=== PATIENT | male | born 1990 | race Caucasian/White ===

== ENCOUNTER 2023-12-09 10:38 | Outpatient (CLI) | payer OTHER, SELFPAY ==
[2023-12-12 20:09] LABS: Immunoglobulin A 244 mg/dL (47-310); TTG IGA AB <1.0 U/mL
== END 2023-12-09 10:39 | disposition home or self-care (01) ==
LOC: ANHLAB 10:41
PROVIDERS: PCP Registered Nurse; Visit Provider Nurse Practitioner Family
DX: K58.0 Irritable bowel syndrome with diarrhea (principal)
CPT/HCPCS: 36415; 82784; 86364

== ENCOUNTER 2024-03-09 12:49 | Emergency (ER) | payer OTHER, SELFPAY ==
[2024-03-09 12:51] VITALS: BP 139/86; PULSE 92; RESP 16; TEMP 36.7; O2SAT 99
--- NOTE | 2024-03-09 13:16 | ED.GENADULT ---
HPI - General Adult General Chief complaint: Extremity Injury, Lower Stated complaint: R ankle injury Time Seen by Provider: 03/09/24 12:59 History of Present Illness HPI narrative: 33-year-old male present to the emergency department for evaluation for a right ankle injury. 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 Patient states he did feel a pop was initially able to walk on it. Patient rested states he started to feel better but as time passed he began to feel increased pain in that ankle. Patient denies any other pain or injury. Patient declined any medications for pain control. Related Data Home Medications Medication Instructions Recorded Confirmed Saccharomyces boulardii 250 mg 250 mg PO BID 10/13/23 01/10/24 capsule (Daily Probiotic (S. boulardii)) multivitamin (Multiple Vitamins 1 tablet PO DAILY 10/13/23 01/10/24 tablet) psyllium husk 0.52 gram capsule 0.52 g PO DAILY 10/13/23 01/10/24 (Daily Fiber) Allergies Allergy/AdvReac Type Severity Reaction Status Date / Time amoxicillin Allergy Mild Unknown Verified 03/09/24 12:59 Penicillins Allergy Mild Unknown Verified 03/09/24 12:59 Review of Systems Review of Systems: All systems reviewed & are unremarkable except as noted in HPI and below PMFSH Past Medical History Medical History Abdominal pain Irritable bowel syndrome with diarrhea Social History Social History Smoking status: Never smoker Exam Narrative: APPEARANCE: Well appearing, no pain, no distress, well-nourished. HEAD: normocephalic, atraumatic. EYES: PERRLA/EOMI, conjunctivae clear. NOSE: Normal no drainage EARS:TMS clear with good light reflex. THROAT: Pharynx clear, no exudate. NECK: Supple. No adenopathy, no masses. RESPIRATORY: Airway patent, respirations nonlabored. Clear to auscultation bilaterally, no rales, rhonchi, wheezing. CARDIOVASCULAR: Regular rate and rhythm without murmurs rubs or gallops. ABDOMINAL: Soft, nontender, nondistended, normal bowel sounds MUSCULOSKELETAL: Right lateral ankle swelling and tenderness, no proximal tib-fib tenderness, no foot tenderness to palpation. Right lateral ankle edema NEURO: Alert. Cranial nerves II through XII intact. Grossly intact SKIN: Warm, dry. Normal Color Course Course Emergency Course: Patient was provided Cyrus wrap and crutches Vital Signs Vital signs: Vital Signs Temperature 98.0 F 03/09/24 12:51 Pulse Rate 92 03/09/24 12:51 Respiratory Rate 16 03/09/24 12:51 Blood Pressure 139/86 03/09/24 12:51 Pulse Oximetry 99 03/09/24 12:51 Oxygen Delivery Room Air 03/09/24 12:51 Temperature 97.8 F 03/09/24 14:10 Pulse Rate 78 03/09/24 14:10 Respiratory Rate 18 03/09/24 14:10 Blood Pressure 137/62 03/09/24 14:10 Pulse Oximetry 100 03/09/24 14:10 Oxygen Delivery Room Air 03/09/24 12:51 Medical Decision Making MDM Narrative Medical decision making narrative: 33-year-old male present to the emergency department for evaluation for right ankle pain. X-ray was negative for acute fracture dislocation. Patient was provided Cyrus wrap and crutches for limited weight-bearing. Suspect ankle strain versus ankle sprain. Patient was encouraged of close follow-up with his primary care physician. Differential Diagnosis Differential Diagnosis: Ankle sprain, ankle fracture Vital Signs Vital Signs: Vital Signs Temperature 98.0 F 03/09/24 12:51 Pulse Rate 92 03/09/24 12:51 Respiratory Rate 16 03/09/24 12:51 Blood Pressure 139/86 03/09/24 12:51 Pulse Oximetry 99 03/09/24 12:51 Oxygen Delivery Room Air 03/09/24 12:51 Temperature 97.8 F 03/09/24 14:10 Pulse Rate 78 03/09/24 14:10 Respiratory Rate 18 03/09/24 14:10 Blood Pressure 137/62 03/09/24 14:10 Pulse Oximetry
[2024-03-09] MEDS: IBUPROFEN 400 MG TABLET 800 MG PO (14:01)
[2024-03-09 14:10] VITALS: BP 137/62; PULSE 78; RESP 18; TEMP 36.6; O2SAT 100
== END 2024-03-09 14:15 | disposition home or self-care (01) ==
PROVIDERS: Emergency Provider Emergency Medicine; PCP Registered Nurse
DX: S93.401A Sprain of unspecified ligament of right ankle, initial encounter (principal); S96.911A Strain of unspecified muscle and tendon at ankle and foot level, right foot, initial encounter; X50.0XXA Overexertion from strenuous movement or load, initial encounter; Y93.67 Activity, basketball
CPT/HCPCS: 73610; 99283; A9270

== ENCOUNTER 2025-06-18 12:01 | Emergency (ER) | payer OTHER, SELFPAY ==
--- NOTE | ~2025-06-18 | US_ITS ---
LEFT LOWER EXTREMITY VENOUS DUPLEX Clinical History: pain, swelling, dilated veins COMPARISON: None TECHNIQUE: Grayscale, color, duplex/spectral Doppler sonography left leg FINDINGS/IMPRESSION: 1. Thrombus within left peroneal veins. 2. No [id number] DVT. Reviewed, dictated and finalized at location R.
--- OUTSIDE RECORDS SUMMARY | 2025-06-18 11:30 | XMS_ITS | Encounter Summary ---
Author Organization [facility] Healthcare Address [address] [place] [address] Care Team Providers Care Classroom Technology Coach Name Role Phone No, Physician Primary Care Provider [phone] Reason for Visit * Reason Comments Leg Pain L leg pain from calf to bottom of foot. Started 1 week ago and progressively worsened. No known injury. 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 Gender Identity Not on file Sexual Orientation Not on file documented as of this encounter Last Filed Vital Signs Vital Sign Reading Time Taken Comments Blood Pressure 130/82 06/18/2025 11:17 AM CDT Pulse 95 06/18/2025 11:17 AM CDT Temperature 36.5 C (97.7 F) 06/18/2025 11:17 AM CDT Respiratory Rate 16 06/18/2025 11:17 AM CDT Oxygen Saturation 98% 06/18/2025 11:17 AM CDT Inhaled Oxygen Concentration - - Weight 93 kg (205 lb) 06/18/2025 11:17 AM CDT Height - - Body Mass Index 31.17 03/02/2017 3:56 PM CDT documented in this encounter Progress Notes * Ramsey Carter NP - 06/18/2025 11:30 AM CDT Images from the original note were not included. Subjective/Objective Patient ID: Tl Gaona is a 35 y.o. male. This patient has verbally consented to recording this visit in order to utilize AI technology in generating this note. Chief Complaint Leg Pain (L leg pain from calf to bottom of foot. Started 1 week ago and progressively worsened. Noknown injury. C/o swelling at ankle/lower leg ) History of Present Illness Tl Gaona is a 35 year old male who presents with left lower leg pain and ankle swelling. He experiences unusual leg pain and ankle swelling, primarily in the left calf and radiating to thefoot. The pain is a burning sensation with each step and has worsened over the past week. This differs from his usual plantar fasciitis, which causes heel pain. There is no recent trauma, surgeries, or cancer. 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 He tries to get out of the car frequently. He has no shortness of breath, clotting disorders, or previous blood clots. There is no numbness inthe affected area, but there is tenderness and significant pain radiating down the right side of his leg to the bottom of his foot. Review of Systems All other systems reviewed and are negative. Physical Exam EXTREMITIES: Left calf circumference 37.5 cm, right calf circumference 37.5 cm, left lower leg circumference 26.5 cm, right lower leg circumference 24 cm, swelling present. Strong pulse in lower extremities. Tenderness in right lower extremity. NEUROLOGICAL: Sensation intact in lower extremities. Physical Exam Vitals and nursing note reviewed. Constitutional: General: He is not in acute distress. Appearance: Normal appearance. He is not ill-appearing, toxic-appearing or diaphoretic. Cardiovascular: Rate and Rhythm: Normal rate. Pulmonary: Effort: Pulmonary effort is normal. No accessory muscle usage, prolonged expiration or respiratory distress. Musculoskeletal: Left lower leg: Swelling and tenderness present. Left ankle: Swelling present. Left foot: Swelling present. Normal pulse. Legs: Skin: General: Skin is warm and dry. Capillary Refill: Capillary refill takes less than 2 seconds. Neurological: Mental Status: He is alert. Gait: Gait abnormal. Vitals: 06/18/25 1117 BP: 130/82 Pulse: 95 Resp: 16 Temp: 36.5 ??C (97.7 ??F) SpO2: 98% Weight: 93 kg (205 lb) No results found. No past medical history on file. Current Outpatient Medications: Clomid 50 mg tablet, Take 0.5 tablets (25 mg total) by mouth daily, Disp: , Rfl: mupirocin (BACTROBAN) 2 % ointment, Apply topically 2 (two) times a day (Patient not taking: Reported on 06/18/2025), Disp: 22 g, Rfl: 0 Allergies Allergen Reactions Amoxicillin Rash Reaction: Rash, Penicillins Rash Reaction: Rash, Potassium Rash Reaction: Rash, Social History Tobacco Use Smoking status: Never Smokeless tobacco: Not on file Substance and Sexual Activity Drug use: Not on file Sexual activity: Not on file Alcohol Use: Alcohol Misuse (09/25/2019) Received from [facility] AUDIT-C Frequency of Alcohol Consumption: 2-3 times a week Average Number of Drinks: 3 or 4 Frequency of Binge Drinking: Monthly Past Surgical History: Procedure Laterality Date HAND SURGERY Hand Surgery Procedures Assessment/Plan 1. Pain and swelling of left lower leg (Primary) Results Assessment & Plan Right lower leg pain and swelling, rule out deep vein thrombosis (DVT) Acute right lower leg pain and swelling with concern for DVT. Sedentary occupation increases risk. Immediate evaluation necessary to rule out DVT due to risk of pulmonary embolism. - Refer to ER for Doppler ultrasound and D-dimer test to rule out DVT. - Advised on importance of ruling out DVT due to risk of clot migration can be fatal. - Educated on preventive measures such as walking and calf exercises during prolonged sitting. Disposition Treatment plan including expectations, follow up, and return precautions discussed with patient/parent, verbalizes understanding. Medication dosage, use, and potential adverse reactions discussed with patient/parent. Advised to follow up with PCP if symptoms do not resolve as expected or sooner if condition worsens. Signs/symptoms warranting ER evaluation reviewed. Patient and/or guardian was given an opportunity to ask questions, questions answered. Ramsey Carter NP This office note has been partially dictated using Panna software, and as a result portions of the record may have been created with this software. Occasional wrong-word or '[id number]' substitutions may have occurred due to the inherent limitations of voice recognition software. Read the chartcarefully and recognize, using context, where substitutions have occurred. Cosigned by Josue Davidson MD at 06/18/2025 12:37 PM CDT documented in this encounter Plan of Treatment Not on file documented as of this encounter Visit Diagnoses Diagnosis Pain and swelling of left lower leg- Primary documented in this encounter Historical Medications * This list may reflect changes made after this encounter. Clomid 50 mg tablet Take 0.5 tablets (25 mg total) by mouth daily added in this encounter Care Teams Classroom Technology Coach Relationship Specialty Start Date End Date No, Physician PCP - General 03/02/17 documented as of this encounter
[2025-06-18 12:19] VITALS: BP 120/95; PULSE 105; RESP 16; TEMP 37.1; O2SAT 99
--- NOTE | 2025-06-18 12:27 | PC.NURSE ---
Dr. Watson at bedside assessing pt.
--- NOTE | 2025-06-18 12:51 | ED.EXTPRO ---
HPI - Extremity Problem General Chief complaint: Extremity Problem,Nontraumatic Stated complaint: L lower calf pain and swelling Time Seen by Provider: 06/18/25 12:04 History of Present Illness HPI Narrative: 35-year-old otherwise healthy male presenting to the emergency depart with left lower pain swelling and pain. Denies any traumatic injuries. 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 Did not feel any pop or snap in his heel were calf. He attributed to a plantar fasciitis which she has had on off previously. States the pain is localized to his posterior calf and worse with certain movements of the ankle but is ambulatory and able to range his ankle and foot. Denies any bug bites, any fevers, chills, paresthesias or loss of sensation. No weakness. Was otherwise in his normal state of health. Has tried some Aleve and topical therapy such as ice and stretches without help. Related Data Home Medications ?Medication ?Instructions ?Recorded ?Confirmed ?Last Taken ?Type Saccharomyces boulardii 250 mg 250 mg PO BID 10/13/23 01/10/24 Unknown History capsule (Daily Probiotic (S. boulardii)) multivitamin (Multiple Vitamins 1 tablet PO DAILY 10/13/23 01/10/24 Unknown History tablet) psyllium husk 0.52 gram capsule 0.52 g PO DAILY 10/13/23 01/10/24 Unknown History (Daily Fiber) Allergies Allergy/AdvReac Type Severity Reaction Status Date / Time amoxicillin Allergy Mild Unknown Verified 06/18/25 12:25 Penicillins Allergy Mild Unknown Verified 06/18/25 12:25 Review of Systems Review of Systems: As [facility] Past Medical History Medical History Abdominal pain Irritable bowel syndrome with diarrhea Social History Social History Smoking status: Never smoker Exam Narrative: GENERAL: [Well-appearing, well-nourished, and in no acute distress.] HEAD: [Normocephalic, atraumatic.] EYES: [PERRLA and EOMI.] ENT: Nares clear, no rhinorrhea or epistaxis. Mucous membranes moist. NECK: Supple. CHEST: [Clear to auscultation. No respiratory distress.] HEART: [Regular rate and rhythm]. No murmur heard. [Normal peripheral pulses.] ABDOMEN: [Soft, nondistended], [nontender], [No rigidity or guarding] EXTREMITIES: Left lower extremity has some dilated superficial veins, tenderness to palpation the posterior calf as well as edema to the ankle. Plantar flexion is intact with full strength but does elicit pain in the calf. Dorsiflexion does not elicit any pain. Mild redness and slight warmth but no bug bites or circumferential swelling, rashes or lesions. 2+ dorsalis pedis and posterior tibialis pulses. Good cap refill in each digit. SKIN: Warm, dry, no rash. NEURO: [No focal deficits]. Alert and oriented [x3.] PSYCH: [Normal mood and affect.] Course Vital Signs Vital signs: Vital Signs Temperature 37.1 C 06/18/25 12:19 Pulse Rate 105 H 06/18/25 12:19 Respiratory Rate 16 06/18/25 12:19 Blood Pressure 120/95 H 06/18/25 12:19 Pulse Oximetry 99 06/18/25 12:19 Oxygen Delivery Room Air 06/18/25 12:19 Temperature 37.1 C 06/18/25 12:19 Pulse Rate 105 H 06/18/25 12:19 Respiratory Rate 16 06/18/25 12:19 Blood Pressure 120/95 H 06/18/25 12:19 Pulse Oximetry 99 06/18/25 12:19 Oxygen Delivery Room Air 06/18/25 12:19 MDM - Extremity (Nontraumatic) MDM Narrative Medical decision making narrative: 35-year-old otherwise healthy male presenting to the emergency depart with left lower pain swelling and pain. Denies any traumatic injuries. 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 Did not feel any pop or snap in his heel were calf. He attributed to a plantar fasciitis which she has had on off previously. States the pain is localized to his posterior calf and worse with certain movements of the ankle but is ambulatory and able to range his ankle and foot. Denies any bug bites, any fevers, chills, paresthesias or loss of sensation. No weakness. Was otherwise in his normal state of health. Has tried some Aleve and topical therapy such as ice and stretches without help. Left lower extremity has some dilated superficial veins, tenderness to palpation the posterior calf as well as edema to the ankle. Plantar flexion is intact with full strength but does elicit pain in the calf. Dorsiflexion does not elicit any pain. Mild redness and slight warmth but no bug bites or circumferential swelling, rashes or lesions. 2+ dorsalis pedis and posterior tibialis pulses. Good cap refill in each digit. Patient is mildly tachycardic, afebrile. Saturating 99% on room air. Normal blood pressure. Given his dilated superficial vessels concern for SVT versus DVT versus less likely cellulitis or lymphedema. DVT Doppler ultrasound obtained, basic laboratory studies ordered. Given Toradol for pain. Laboratory studies showed normal kidney function, normal electrolytes. No leukocytosis or anemia. Normal coags. Patient does have a DVT in the peroneal vein on ultrasound. Started on 10 mg of apixaban and discharged home with a DVT started pack prescription. Given follow-up instructions and return precautions. Lab Data 06/18/25 12:51 06/18/25 12:51 Labs: Lab Results 06/18/25 Range/Units 12:51 WBC 7.9 (4.5-10.0) K/mm3 RBC 5.12 (4.6-6.20) M/mm3 Hgb 15.3 (14.0-18.0) g/dL Hct 45.3 (42.0-52.0) % MCV 88.5 (80-100) fl MCH 29.9 (26-34) pg MCHC 33.8 (32-36) g/dl RDW 13.2 (11.5-14.5) % Plt Count 238 (150-375) k/mm3 MPV 9.5 (7.4-10.4) fl Immature Gran % (Auto) 0.4 (0-0.5) % Neut % (Auto) 67.8 (45.5-73.1) % Lymph % (Auto) 23.3 (18.3-44.2) % [place] % (Auto) 6.6 (2.6-8.5) % Eos % (Auto) 1.5 (0-4.4) % Baso % (Auto) 0.4 (0.2-1.2) % Lymph # (Auto) 1.85 (0.9-3.2) K/mm3 [place] # (Auto) 0.5 (0.1-0.6) K/mm3 Eos # (Auto) 0.1 (0-0.3) K/mm3 Baso # (Auto) 0.0 (0.0-0.1) K/mm3 Abs Immat Gran (auto) 0.03 (0.00-0.031) K/mm3 Absolute Neuts (auto) 5.4 (1.3-6.7) K/mm3 Absolute Nucleated RBC 0.000 (0.0-0.012) K/mm3 Nucleated RBC % 0.0 (0.0-0.2) % PT 13.7 (11.1-14.7) Seconds INR 1.1 APTT 26.6 (22.3-36.8) Seconds Sodium 137 (137-145) mmol/L Potassium 3.5 (3.4-5.0) mmol/L Chloride 105 (98-107) mmol/L Carbon Dioxide 23 (22-30) mmol/L Anion Gap 9 (4-12) mmol/L BUN 10 (9-20) mg/dL Creatinine 0.89 (0.7-1.3) mg/dL Estim Creat Clear Calc Not Reportable Estimated GFR > 60 (59 - ) Glucose 167 H (65-110) mg/dL Calcium 8.8 (8.4-10.2) mg/dL Discharge Plan Discharge Clinical Impression: Deep vein thrombosis of lower extremity Patient Disposition: Home Condition: Stable Instructions: Antibiotic Form, Apixaban (By mouth), Deep Vein Thrombosis (DC), Deep Vein Thrombosis Prevention (ED) Additional Instructions: You have a DVT/blood clot in the left peroneal vein of the lower extremity consistent with your examination findings. Laboratory studies are normal. We will start you on a blood thinner to take and prescription was sent to her pharmacy. Speak with your primary care provider for continuing the blood thinner dose as it usually requires 3 months of treatment and we have given you the 1st month prescribed. Return with developing symptoms such as worsening pain, losing feeling or sensation in the leg, shortness of breath, chest pain, losing consciousness unexplained or any other issues. Follow-up with your regular doctor otherwise. Patient Language: Sinhala Prescriptions: New Yvonnequis DVT-PE Treat 30D Start 5 mg (74 tabs) tablets,dose pack See Rx Instructions .ROUTE .COMPLEX Qty: 74 0RF Rx Instructions: orally per package directions No Action multivitamin [Multiple Vitamins] Tablet 1 tablet PO DAILY psyllium husk [Daily Fiber] 0.52 gram capsule 0.52 g PO DAILY Saccharomyces boulardii [Daily Probiotic (S. boulardii)] 250 mg capsule 250 mg PO BID omeprazole 20 mg capsule,delayed release(DR/EC) 20 mg PO DAILY 90 Days Qty: 90 3RF Viberzi 100 mg tablet 100 mg PO BID 30 Days Qty: 60 5RF Rx Instructions: must administer with a meal/food Follow-up/Referrals: Floyd,Darlene Asif MD [Primary Care Provider, Unknown] Time of Disposition: 13:46
[2025-06-18] MEDS: KETOROLAC 15 MG/ML VIAL (*BKC) IV PUSH (12:52)
[2025-06-18 13:04] LABS: Hematocrit 45.3 % (42.0-52.0); Hemoglobin 15.3 g/dL (14.0-18.0); Immature Granulocyte Percent A 0.4 % (0-0.5); Lymphocytes Absolute Auto 1.85 K/mm3 (0.9-3.2); Mean Corpuscular HGB Conc 33.8 g/dl (32-36); Mean Corpuscular Hemoglobin 29.9 pg (26-34); Mean Corpuscular Volume 88.5 fl (80-100); Nucleated Red Blood Cells Absolute Auto 0.000 K/mm3 (0.0-0.012); Nucleated Red Blood Cells Perc 0.0 % (0.0-0.2); Platelet Count Result 238 k/mm3 (150-375); Red Blood Count 5.12 M/mm3 (4.6-6.20); White Blood Count 7.9 K/mm3 (4.5-10.0)
[2025-06-18 13:15] LABS: Anion Gap 9 mmol/L (4-12); Blood Urea Nitrogen 10 mg/dL (9-20); Calcium 8.8 mg/dL (8.4-10.2); Carbon Dioxide 23 mmol/L (22-30); Chloride 105 mmol/L (98-107); Estimated Glomerular Filt Rate > 60; Glucose 167 mg/dL (65-110); INR 1.1; Partial Thromboplastin Time 26.6 Seconds (22.3-36.8); Potassium 3.5 mmol/L (3.4-5.0); Prothrombin Time 13.7 Seconds (11.1-14.7); Sodium 137 mmol/L (137-145)
--- OUTSIDE RECORDS SUMMARY | 2025-06-18 13:59 | XMS_ITS | Clinical Summary ---
Author Organization [address] Address [address] [place] [id number] Care Team Providers Care Transit Mix Operator Name Role Phone No, Physician Primary Care Provider [phone] Allergies Active Allergy Reactions Criticality Noted Date Comments Amoxicillin Rash Reaction: Rash, Penicillins Rash Reaction: Rash, Potassium Rash Reaction: Rash, Medications mupirocin (BACTROBAN) 2 % ointmentIndicat ions:Tattoo reaction,Cellul itis of right thigh Apply topically 2 (two) times a day 22 g Active Additional Information Patient not taking.Reported on 06/18/2025 Clomid 50 mg tablet Take 0.5 tablets (25 mg total) by mouth daily Active Active Problems No known active problems Encounters Date Type Department Care Team Description 06/18/2025 11:30 AM CDT Office Visit [facility] Care at [address] [address] Ramsey Carter NP Pain and swelling of left lower leg (Primary Dx) from Last 3 Months Surgical History Surgery Date Site/Laterality Comments HAND SURGERY Hand Surgery Social History Tobacco Use Types Packs/Day Years Used Date Smoking Tobacco: Never Sex and Gender Information Value Date Recorded Sex Assigned at Not on file 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 Gender Identity Not on file Sexual Orientation Not on file Obstetrics History Last Filed Vital Signs Vital Sign Reading Time Taken Comments Blood Pressure 130/82 06/18/2025 11:17 AM CDT Pulse 95 06/18/2025 11:17 AM CDT Temperature 36.5 C (97.7 F) 06/18/2025 11:17 AM CDT Respiratory Rate 16 06/18/2025 11:17 AM CDT Oxygen Saturation 98% 06/18/2025 11:17 AM CDT Inhaled Oxygen Concentration - - Weight 93 kg (205 lb) 06/18/2025 11:17 AM CDT Height 172.7 cm (5' 8) 03/02/2017 3:56 PM CDT Body Mass Index 31.17 03/02/2017 3:56 PM CDT Plan of Treatment Health Maintenance Due Date Last Done Comments Depression Screening 1990 Hepatitis C Screening 1990 Varicella Vaccines (1 of 2 - 13+ 2-dose series) 2003 Regular Well Visit/Exam 18-64 2008 HPV Vaccines (1 - 3-dose SCDM series) 2017 Covid-19 Vaccine ( season) 2025 07/26/2021, 12/08/2020, 11/16/2020 Influenza Vaccine (#1) 2025 , 09/23/2023, 07/01/2016, Additional history exists DTaP/Tdap/Td Vaccine (8 - Td or Tdap) 09/23/2033 09/23/2023, 07/06/2013, 03/18/2005, Additional history exists Hepatitis B Screening Completed 06/09/2001 , 11/04/1997, 05/31/1997, Additional history exists Pneumococcal vaccine <65 Aged Out No longer eligible based on patient's age to complete this topic Insurance [facility] [id number] Care Teams Transit Mix Operator Relationship Specialty Start Date End Date No, Physician PCP - General 03/02/17
--- OUTSIDE RECORDS SUMMARY | 2025-06-18 13:59 | XMS_ITS | Clinical Summary ---
Author Organization [facility] Address [address] [place] [address] Care Team Providers Care Compatibility Test Engineer Name Role Phone Unavailable Primary Care Provider Unavailabl e Source Comments [facility],non-owned Affiliates and Associated Physician Practices is amultiple site organization consisting of ambulatory clinics and hospital sitesin [place], [place], [place] and [place]. This disclosure is being madepursuant to the Care Everywhere program and may not contain all information available regarding this patient. Last updated 18.[facility] Allergies Active Allergy Reactions Criticality Noted Date Comments Penicillins Rash Medium 04/27/2018 Medications * Be aware that medications may not be up to date on this document. Alwaysverify current medications with the patient. predniSONE (DELTASONE) 20 MG tablet 3 tabs PO QD x 3 days, 2 tabs PO QD x 3 days, 1 tab PO QD x 3 days 18 tablet 04/27/2018 Active Social History Tobacco Use Types Packs/Day Years Used Date Smoking Tobacco: Never Assessed Sex and Gender Information Value Date Recorded Sex Assigned at Not on file Legal Sex Male 12:30 PM CDT Gender Identity Not on file Sexual Orientation Not on file Last Filed Vital Signs Vital Sign Reading Time Taken Comments Blood Pressure 122/64 04/27/2018 9:09 AM CDT Pulse 60 04/27/2018 9:09 AM CDT Temperature 36.8 C (98.2 F) 04/27/2018 9:09 AM CDT Respiratory Rate 16 04/27/2018 9:09 AM CDT Oxygen Saturation 98% 04/27/2018 9:09 AM CDT Inhaled Oxygen Concentration - - Weight 74.8 kg (165 lb) 04/27/2018 9:09 AM CDT Height 175.3 cm (5' 9) 04/27/2018 9:09 AM CDT Body Mass Index 24.37 04/27/2018 9:09 AM CDT Plan of Treatment Health Maintenance Due Date Last Done Comments HIV SCREENING 2005 HEPATITIS C SCREENING 05/19/2008 DTAP/TDAP/TD VACCINES (1 - Tdap) 2009 HEPATITIS B VACCINE (1 of 3 - 19+ 3-dose series) 2009 HPV VACCINE (1 - 3-dose SCDM series) 2017 DEPRESSION SCREENING 08/22/2024 COVID-19 VACCINE ( season) 2025 INFLUENZA VACCINE (#1) 2025 6, 06/12/2015, 07/15/2014, Additional history exists ZOSTER VACCINE (1 of 2) 2040 HIB VACCINE Aged Out No longer eligi ble based on patient's age to complete this topic MENINGOCOCCAL (Group B) VACCINE SHARED DECISION-MAKING Aged Out No longer eligible based on patient's age to complete this topic MENINGOCOCCAL GROUPS A/C/Y/W VACCINE Aged Out No longer eligible based on patient's age to complete this topic PNEUMOCOCCAL VACCINE Aged Out No long er eligible based on patient's age to complete [place] [address] [facility]
--- OUTSIDE RECORDS SUMMARY | 2025-06-18 13:59 | XMS_ITS | Clinical Summary ---
Author Organization 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
--- OUTSIDE RECORDS SUMMARY | 2025-06-18 13:59 | XMS_ITS | Encounter Summary ---
Author Organization [facility] Address [facility] [place] [address] Care Team Providers Care Carpet Installation Specialist Name Role Phone Barbra Caicedo NP Primary Care Provider [phone] Encounter Details Date Type Department Care Team (Late st Contact Info) Description 04/08/2025 [employer] Message Enc [facility] Medical Group Family & Internal Medicine [facility] [address] [place] [address] [place] [address] [facility] [address] [place] [address] Migraines/Headaches Social History Tobacco Use Types Packs/Day Years Used Date Smoking Tobacco: Former Cigarettes 0.5 3 0 09/25/2011 - 09/25/2014 Smokeless Tobacco: Never Alcohol Use Standard Drinks/Week Comments Yes 1 (1 standard drink = 0.6 oz pur e alcohol) couple drinks once a month AUDIT-C Answer Date Recorded Frequency of Alcohol Consumption 2-3 times a wee k 09/25/2019 Average Number of Drinks 3 or 4 020 Frequency of Binge Drinking Monthly 11/2019 PHQ-2 Answer Date Recorded Patient Health Questionnaire-2 Score 0 02/14/2024 Sex and Gender Information Value Date Recorded Sex Assigned at Male 09/11/2024 7:46 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 Legal Sex Male 12:24 PM FRAME OPENER Gender Identity Not on file Sexual Orientation Not on file documented as of this encounter Progress Notes * Barbra Caicedo NP - 04/16/2025 9:00 AM CDT Discussed in appointment documented in this encounter Plan of Treatment Not on file documented as of this encounter Visit Diagnoses Not on filedocumented in this encounter Additional Health Concerns Assessment Noted Time PHQ-9 Depression Total Score: 2 02/14/20 24 12:10 PM CDT documented as of this encounter Care Teams Carpet Installation Specialist Relationship Specialty Start [place] [address] [facility] [address] [place] [phone] PCP - General Nurse Practitioner Family 02/08/24 documented as of this encounter
--- OUTSIDE RECORDS SUMMARY | 2025-06-18 13:59 | XMS_ITS | Clinical Summary ---
Author Organization [facility] Address [address] [place] [address] Care Team Providers Care Pipeline Welder Name Role Phone Barbra Caicedo NP Primary Care Provider + [phone] Allergies Active Allergy Reactions Criticality Noted Date Comments Amoxicillin Other (see comment) Medium 11/05/2020 Throat closes up. Penicillins Rash Medium 04/27/2018 Reaction: Rash, Reaction: Rash, Medications cetirizine (ZYRTEC) 10 MG tablet Take 1 tablet (10 mg total) by mouth daily. Active VIBERZI 100 MG Tab 4 Active omeprazole (PRILOSEC) 40 MG capsule Take 1 capsule (40 mg total) by mouth 2 (two) times daily. 4 Active CLOMID 50 MG Tab 4 Active ondansetron (ZOFRAN-ODT) 4 MG disintegrating tabletIndications:M igraine with aura and with status migrainosus, not intractable Take 1 tablet (4 mg total) by mouth every 8 (eight) hours as needed for Nausea. 20 tablet 5 Active ubrogepant (UBRELVY) 100 MG tabletIndications:M igraine with aura and with status migrainosus, not intractable Take 1 tablet (100 mg total) by mouth 2 (two) times daily as needed for Migraine. Max of 2 tablets (200 mg) in 24 hours 60 tablet 2 5 Active Active Problems Problem Noted Date Diagnosed Date Chronic bilateral low back pain without sciatica 08/09/2024 Bilateral chronic knee pain 03/22/2024 Allergic rhinitis 02/14/2024 Amblyopia 02/14/2024 Anxiety 02/14/2024 Elevated liver enzymes 02/14/2024 Exposure to potentially hazardous substance 01/21 Overview (02/14/2024): January 14, 2022 Entered By: JULIANNE SHEIKH Comment: Vet completed GWR and ABH/BURN PIT EXAM 01/14/2022. Low back pain 02/14/2024 Low vision of left eye with normal vision in contralateral eye 02/14/2024 Refractive error 02/14/2024 Erectile dysfunction 05/22/2023 Change in bowel habit 11/24/2022 Overview (11/24/2022): Added automatically from request for surgery [id number] Gastroesophageal reflux disease without esophagi tis 01/18/2020 Bilateral plantar fasciitis 02/12/2019 Knee strain 03/14/2016 Resolved Problems Problem Noted Date Diagnosed Date Resolved Date Encounter for screening, unspecified 02/14/2024 02/20/2024 Encounters Date Type Department Care Team Description 04/24/2025 Results Follow-Up [facility] Family & Internal [address] [address] Barbra Caicedo NP TSH W/REFLEX, LIPID PANEL, CBC W/DIFF AUTOMATED, COMPREHENSIVE METABOLIC PANEL 04/15/2025 5:15 PM CDT - 04/15/2025 11:59 PM CDT Hospital Encounter [facility] [address] [place] [phone] Barbra Caicedo NP Discharge Disposition: Home or Self Care (Routine Discharge) 04/15/2025 1:20 PM CDT Laboratory Only [facility] Internal [address] [address] Barbra Caicedo NP 04/15/2025 11:20 AM CDT Office Visit [facility] Internal [address] [address] Sascha, Barbra J, MEDICAL DEVICE SALES Headache (Pt states he is doing better with medication. ) 04/15/2025 Travel 04/08/2025 MyChart Message Enc [facility] Medical Group Family & Internal Medicine [address] [address] Barbra Caicedo, PARVEEN Migraines/Headaches from Last 3 Months Immunizations Immunization Administration Dates Next Due Adenovirus Vaccine 07/09/2013 Anthrax Vaccine 05/13/2015,03/05/2015 Dtp 02/03/1996, 2,1990,10/23,1990 Fluzone (IIV3, Trivalent, 0. 5 ML Prefilled Syringe) 07/06/2024 Fluzone 6 Months+ Quad (0.5 mL Prefilled Syringe) 09/23/2023 Hepatitis A (Havrix [address]) 01/07/2014,2012 Hepatitis B 06/09/2001, 8,05/31/1997,04/19 Hib 09/14/1991 Influenza (FluMist) 07/15/2014,07/09/2013 Influenza (Generic) 07/01/2016 Influenza Adult (Generic) 06/12/2015 MMR 04/20/1994,09/14/1991 Meningococcal (Menactra) 07/06/2013 Opv 02/03/1996, 2,1990,08/09 PFIZER COVID-19 (ORIGINAL FO RMULATION, PURPLE CAP) mRNA, LNP-S, PF, 30 MCG/0.3 ML DOSE 12/08/2020,11/16/2020 Polio IPV (Ipol) 07/06/2013 Tdap (Adacel) 09/23/2023 Tdap (Generic) 07/06/2013 Tetanus/Diptheria 03/18/2005 Typhoid (Typhim ) 03/05/2015 Family History Medical History Relation Comments Anxiety Brother Heart Attack Father age 47 Diabetes Maternal Grandfather Cancer Maternal Grandmother Diabetes Maternal Grandmother Cancer Paternal Grandfather bladder Relation Status Comments Brother Father Maternal Grandfather Maternal Grandmother Paternal Grandfather Social History Tobacco Use Types Packs/Day Years Used Date Smoking Tobacco: Former Cigarettes 0.5 3 0 09/25/2011 - 09/25/2014 Smokeless Tobacco: Never Tobacco Cessation:Counseling Given: No Alcohol Use Standard Drinks/Week Comments Yes 1 (1 standard drink = 0.6 oz pur e alcohol) couple drinks once a month AUDIT-C Answer Date Recorded Frequency of Alcohol Consumption 2-3 times a wee k 09/25/2019 Average Number of Drinks 3 or 4 020 Frequency of Binge Drinking Monthly 11/2019 PHQ-2 Answer Date Recorded Patient Health Questionnaire-2 Score 0 04/15/2025 Sex and Gender Information Value Date Recorded Sex Assigned at Male 09/11/2024 7:46 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 Legal Sex Male 12:24 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 Gender Identity Not on file Sexual Orientation Not on file Last Filed Vital Signs Vital Sign Reading Time Taken Comments Blood Pressure 131/88 04/15/2025 11:43 AM CDT Pulse 63 04/15/2025 11:43 AM CDT Temperature 36.6 C (97.8 F) 04/15/2025 11:43 AM CDT Respiratory Rate 14 04/15/2025 11:43 AM CDT Oxygen Saturation 98% 04/15/2025 11:43 AM CDT Inhaled Oxygen Concentration - - Weight 92.1 kg (203 lb) 04/15/2025 11:43 AM CDT Height 175.3 cm (5' 9) 04/15/2025 11:43 AM CDT Body Mass Index 29.98 04/15/2025 11:43 AM CDT Plan of Treatment Health Maintenance Due Date Last Done Comments HPV Vaccines (1 - 3-dose SCDM series) 2017 Annual Physical 11/05/2022 11/05/2021 COVID-19 Vaccine ( season) 2025 07/26/2021, 12/08/2020, 11/16/2020 Influenza Adult (#1) 2025 07/06/2024, 09/23/2023, 07/01/2016, Additional history exists DTaP, Tdap and Td Vaccines (4 - Td or Tdap) 09/23/2033 09/23/2023, 07/06/2013, 03/18/2005, Additional history exists Hepatitis B Vaccines Completed 06/09/2001, 11/04/1997, 05/31/1997, Additional history exists Meningococcal Vaccine Aged Out 07/06/2013 No petr mainor eligible based on patient's age to complete this topic Hepatitis A Vaccines Aged Out 01/07/2014, 07/09/20 13 No longer eligible based on patient's age to complete this topic Hepatitis C Completed 06/09/2020 PHQ-2 (Physician [place]) Completed 04/15/2025 Meningococcal B Vaccine Aged Out No l onger eligible based on patient's age to complete this topic Pneumococcal Vaccine: Pediatrics (0 to 5 Years) and At-Risk Patients (6 to 49 Years) Aged Out No longer eligible based on patient's age to complete this topic RSV Immunizations Under 20 Months Aged Out No longer eligible based on patient's age to complete this topic Procedures Procedure Name Priority Date/Time Associated Diagnosis Comments COLLECTION VENOUS BLOOD VENIPUNCTURE Routine 04/15/2025 12:47 PM CDT Overweight (BMI 25.0-29.9) Encounter for preventive health examination Migraine with aura and with status migrainosus, not intractable COMPREHENSIVE METABOLIC PANEL Routine 04/15/2025 12:40 PM CDT Overweight (BMI 25.0-29.9) Encounter for preventive health examination Migraine with aura and with status migrainosus, not intractable CBC W/DIFF AUTOMATED Routine 04/15/2025 12:40 PM CDT Overweight (BMI 25.0-29.9) Encounter for preventive health examination Migraine with aura and with status migrainosus, not intractable LIPID PANEL Routine 04/15/2025 12:40 PM CDT Overweight (BMI 25.0-29.9) Encounter for preventive health examination Migraine with aura and with status migrainosus, not intractable TSH W/REFLEX Routine 04/15/2025 12:40 PM CDT Overweight (BMI 25.0-29.9) Encounter for preventive health examination Migraine with aura and with status migrainosus, not intractable HEPATITIS C ANTIBODY W/RFX TO HCV RNA Routine 06/09/2020 1:55 PM CDT from Last 3 Months or Most Recently Relevant to Health Maintenance Results * TSH W/REFLEX (04/15/2025 12:40 PM CDT) TSH 1.028 0.358 - 3.74 uIU/ML 04/15/2025 6:[address] [facility] Comment: HIGH DOSES OF BIOTIN MAY INTERFERE WITH THIS TEST RESULT. CORRELATION TO CLINICAL HISTORY AND PRESENTATION RECOMMENDED. FREE T4 NOT INDICATED 04/15/2025 12:4 0 PM CDT us Barbra Caicedo NP LABORATORY Final Result [facility] [address] [place] [address], [place] [phone] * (ABNORMAL) COMPREHENSIVE METABOLIC PANEL (04/15/2025 12:40 PM CDT) GLUCOSE 78 70 - 99 MG/DL 04/15/2025 6:[address] [facility] BUN 10 7 - 18 MG/DL 04/15/2025 6:[address] [facility] CREATININE S/P/B 1.20 0.7 - 1.3 MG/DL 04/15/2025 6:[address] [facility] SODIUM S/P/B 141 136 - 145 MMOL/L 04/15/2025 6:[address] [facility] POTASSIUM S/P/B 4.1 3.5 - 5.1 MMOL/L 04/15/2025 6:[address] [facility] CHLORIDE S/P/B 105 100 - 108 MMOL/L 04/15/2025 6:[address] [facility] CO2 28.4 21 - 32 MMOL/L 04/15/2025 6:[address] [facility] CALCIUM S/P/B 8.8 8.5 - 10.1 MG/DL 04/15/2025 6:37 PM [facility] BILIRUBIN TOTAL S/P/B 0.5 0.2 - 1.2 MG/DL 04/15/2025 6:37 PM [facility] TOTAL PROTEIN S/P/B 7.2 6.4 - 8.2 G/DL 04/15/2025 6:37 PM [facility] ALBUMIN S/P/B 4.1 3.4 - 5.0 G/DL 04/15/2025 6:37 PM [facility] AST 24 15 - 37 U/L 04/15/2025 6:37 PM [facility] ALT 47 16 - 60 U/L 04/15/2025 6:37 PM [facility] ALKALINE PHOSPHATASE S/P/B 88 50 - 136 U/L 04/15/2025 6:37 PM [facility] ANION GAP 7.6 5 - 15 MMOL/L 04/15/2025 6:37 PM [facility] BUN CREATININE RATIO 8.3 6 - 26 04/15/2025 6:37 PM [facility] A/G RATIO 1.3 1.0 - 2.0 RATIO 04/15/2025 6:37 PM [facility] GFR ESTIMATE 81(L) >90 ML/MIN/1.7 3 M2 04/15/2025 6:37 PM [facility] Comment: NOTE: eGFR is not calculated for patients <18 years of age. This is an estimated GFR calculation using the new CKD EPI creatinine equation without race and so does not require a correction factor for race. This estimated GFR should not be used for calculating drug doses. 04/15/2025 12:4 0 PM CDT us Barbra Caicedo NP LABORATORY Final Result [facility] [address] [place] [address], * (ABNORMAL) LIPID PANEL (04/15/2025 12:40 PM CDT) CHOLESTEROL 209(H) <200.0 MG/DL 04/15/2025 6:[address] [facility] TRIGLYCERIDES 110 <150 MG/DL 04/15/2025 6:[address] [facility] HDL 40(L) >40.0 MG/DL 04/15/2025 6:[address] [facility] LDL (CALCULATED) 147(H) <100 MG/DL 04/15/2025 6:[address] [facility] Comment:CALCULATED USING THE FRIEDEWALD EQUATION NON HDL CHOLESTEROL 169(H) <130 MG/DL 04/15/2025 6:[address] [facility] CHOL/HDL RATIO 5.2(H) 0.0 - 4.5 04/15/2025 6:[address] [facility] VLDL CALCULATION 22 5 - 55 MG/DL 04/15/2025 6:[address] [facility] LIPID INTERPRETATION 04/15/2025 6:[address] [facility] Comment: NIH CONCENSUS REPORT RECOMMENDATIONS: ADULT CHILD LOW RISK: CHOLESTEROL <200 <170 TRIGLYCERIDE <150 --- HDL >=60 --- LDL <100 <110 BORDERLINE: CHOLESTEROL 200-239 170-199 TRIGLYCERIDE 150-199 --- HDL 40-59 --- LDL 100-159 110-129 HIGH RISK: CHOLESTEROL >=240 >=200 TRIGLYCERIDE >=200 --- HDL <40 --- LDL >=160 >=130 04/15/2025 12:4 0 PM CDT us Barbra Caicedo NP LABORATORY Final Result [facility] [address] [place] [address], * CBC W/DIFF AUTOMATED (04/15/2025 12:40 PM CDT) WBC 8.29 4.4 - 11.0 x10'3/uL 04/15/2025 6:[address] [facility] RBC 5.34 4.50 - 5.90 x10'6/uL 04/15/2025 6:[address] [facility] HGB 16.0 14.0 - 17.5 G/DL 04/15/2025 6:[address] [facility] HCT 48.4 41.5 - 50.4 % 04/15/2025 6:[address] [facility] MCV 90.6 80.0 - 96.0 FL 04/15/2025 6:[address] [facility] MCH 30.0 26.5 - 31.4 PG 04/15/2025 6:[address] [facility] MCHC 33.1 31.9 - 34.8 G/DL 04/15/2025 6:[address] [facility] RDW 13.8 12.3 - 14.3 % 04/15/2025 6:[address] [facility] PLT 260 151 - 353 x10'3/uL 04/15/2025 6:[address] [facility] MPV 9.9 9.7 - 11.9 FL 04/15/2025 6:[address] [facility] RBC MORPHOLOGY NORMAL 04/15/2025 6:[address] [facility] PLT MORPH. NORMAL 04/15/2025 6:[address] [facility] WBC MORPHOLOGY NORMAL 04/15/2025 6:[address] [facility] LYMPHOCYTES % 34.3 15.8 - 45.0 % 04/15/2025 6:[address] [facility] NEUTROPHILS % 56.0 42.1 - 71.9 % 04/15/2025 6:[address] [facility] MONOCYTES % 7.0 5.7 - 12.5 % 04/15/2025 6:[address] [facility] EOSINOPHILS 2.1 0.0 - 5.6 % 04/15/2025 6:[address] [facility] BASOPHILS 0.4 0.0 - 1.3 % 04/15/2025 6:[address] [facility] ABS. NEUTROPHILS 4.65 1.40 - 6.00 x10'3/uL 04/15/2025 6:[address] [facility] IMMATURE GRANS % 0.2 0.0 - 0.5 % 04/15/2025 6:[address] [facility] ABS. LYMPHOCYTES 2.84 0.80 - 4.70 x10'3/uL 04/15/2025 6:[address] [facility] 04/15/2025 12:4 0 PM CDT us Barbra Caicedo NP LABORATORY Final Result [facility] [address] [place] [address], * HEPATITIS C ANTIBODY W/RFX TO HCV RNA (06/09/2020 1:55 PM CDT) HEPATITIS C AB NON-REACTI VE NON-REACT MAIA [facility] SIGNAL TO CUTOFF 0.01 <[address] [facility] Comment: HCV antibody was non-reactive. There is no laboratory evidence of HCV infection. In most cases, no further action is required. However, if recent HCV exposure is suspected, a test for HCV RNA (test code 24807) is suggested. For additional information please refer to http://education.[employer]/faq/EPG91b8 (This link is being provided for informational/ educational purposes only.) 06/09/2020 1:55 PM CDT 06/09/2020 1:57 PM CDT Narrative [facility] - 06/13/2020 4:06 AM CDT FASTING:YES FASTING: YES Mily [facility]ON [facility] Final Resul t [facility] [address] [place] [address] from Last 3 Months or Most Recently Relevant to Health Maintenance Insurance [employer] [facility] Advance Directives Documents on File Type Date Recorded Patient Leather Currier Expl anation Advance Directives and Living Will 01/06/2021 12:00 AM ADVANCED DIRECTIVES Care Teams Pipeline Welder Relationship Specialty Start [place] [address] [facility] [address] [place] [phone] (Work) PCP - General Nurse Practitioner Family 02/08/24
--- OUTSIDE RECORDS SUMMARY | 2025-06-18 13:59 | XMS_ITS | Encounter Summary ---
Author Organization [facility] Address [facility] [place] [address] Care Team Providers Care Hall Porter Name Role Phone Barbra Caicedo OUTDOOR STUDIES PROFESSOR Primary Care Provider [phone] Encounter Details Date Type Department Care Team (Latest Contact Info) Description 04/24/2025 Results Follow-Up [facility] Family & Internal Medicine [facility] [address] [place] [address] Barbra Caicedo, OUTDOOR STUDIES PROFESSOR [address] [facility] [address], [place] [id number] TSH W/REFLEX, LIPID PANEL, CBC W/DIFF AUTOMATED, COMPREHENSIVE METABOLIC PANEL Social History Tobacco Use Types Packs/Day Years [...] Sex Assigned at Male 09/11/2024 7:46 PM LOAN SERVICING 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 Legal Sex Male 12:24 PM LOAN SERVICING OFFICER Gender Identity Not on file Sexual Orientation Not on file documented as of this encounter Plan of Treatment Not on file documented as of this encounter Visit Diagnoses Not on filedocumented in this encounter Additional Health Concerns Assessment Noted Time PHQ-9 Depression Total Score: 2 02/14/20 24 12:10 PM CDT documented as of this encounter Care Teams Hall Porter Relationship Specialty Start Date End Date Barbra Caicedo, OUTDOOR STUDIES PROFESSOR [address] [place] [phone] PCP - General Nurse Practitioner Family 02/08/24 documented as of this encounter
[2025-06-18] MEDS: APIXABAN 5 MG TABLET 10 MG PO (14:03)
== END 2025-06-18 14:11 | disposition home or self-care (01) ==
PROVIDERS: Emergency Provider Student in an Organized Health Care Education/Training Program; PCP Emergency Medicine
DX: I82.452 Acute embolism and thrombosis of left peroneal vein (principal); K58.0 Irritable bowel syndrome with diarrhea; Z79.899 Other long term (current) drug therapy
CPT/HCPCS: 36415; 80048; 85025; 85610; 85730; 93971; 96374; 99284; A9270; J1885